=== PATIENT | male | born 1955 | race Caucasian/White ===

== ENCOUNTER 2016-04-20 13:25 | Inpatient (IN) | payer BC ==
[2016-04-20] MEDS ORDERED: SODIUM CHLORIDE 1,000 ML IV STA (14:40)
--- NOTE | 2016-04-20 14:45 | PDOC ---
History of Present Illness - General Chief Complaint: Weakness Stated Complaint: WEAKNESS Time Seen by Provider: 04/20/16 14:30 History Source: Patient, Family Exam Limitations: No Limitations - History of Present Illness Initial Comments: 04/20/16 14:42 61 yr male with c/o generalised weakness for 2 weeks. Pt admits to drinking alcohol vodka 1-2 pints a day last drink 3am. Pt denies any drug use non smoker. Pt has arthritis, no other medical history no surgical history. Pt feels feverish at times. Pt arrives in ED with and daughter pt states "I need help". Denies seizure history or history of blackouts. Pt denies abd pain or back pain no urinary or bowel dysfunction. Denies any blood in stool or vomiting . 04/20/16 14:44 04/20/16 15:00 04/20/16 15:38 Past History - Past Medical History Allergies/Adverse Reactions: Allergies Allergy/AdvReac Type Severity Reaction Status Date / Time No Known Allergies Allergy Verified 04/20/16 13:32 Home Medications: Ambulatory Orders Acetaminophen [Tylenol Arthritis] 650 mg PO PRN 04/20/16 Gabapentin [Neurontin -] 300 mg PO DAILY 04/20/16 Amlodipine Besylate [Norvasc -] 5 mg PO DAILY #90 tablet 04/22/16 Hydralazine HCl [Apresoline -] 10 mg PO DAILY #90 tablet 04/22/16 Other medical history: ARTHRITIS - Surgical History Appendectomy: Yes - Psycho/Social/Smoking Cessation Hx Anxiety: No Suicidal Ideation: No Smoking History: Never smoked Hx Alcohol Use: Yes (DAILY VODKA) Drug/Substance Use Hx: No Substance Use Type: None *Physical Exam - Vital Signs Last Vital Signs Temp Pulse Resp BP Pulse Ox 98.0 F 114 H 20 145/91 97 04/20/16 13:28 04/20/16 13:28 04/20/16 13:28 04/20/16 13:28 04/20/16 13:28 - Physical Exam General Appearance: Yes: Nourished, Appropriately Dressed HEENT: positive: EOMI, SAKINA, Normal ENT Inspection, TMs Normal, Pharynx Normal Neck: positive: Supple. negative: Tender Respiratory/Chest: positive: Lungs Clear, Normal Breath Sounds. negative: Chest Tender Cardiovascular: positive: Regular Rhythm, Regular Rate Gastrointestinal/Abdominal: positive: Soft, Distended. negative: Tender Musculoskeletal: positive: Normal Inspection Extremity: positive: Normal Capillary Refill, Normal Inspection, Normal Range of Motion Integumentary: positive: Normal Color, Dry, Warm Neurologic: positive: Fully Oriented, Alert, Normal Mood/Affect, Normal Response , Motor Strength 08/12 ED Treatment Course - LABORATORY CBC & Chemistry Diagram: 04/21/16 06:30 04/21/16 06:30 - RADIOLOGY Radiology Studies Ordered: Category Date Time Status CHEST PA & LAT [RAD] Stat Radiology 04/20/16 14:40 Ordered Medical Decision Making - Medical Decision Making 04/20/16 16:07 cc: weakness, etoh abuse denies chest pain denies SOB will check labs, CXR, flu swab, IVF admit for observation spoke to PMD states no history of CAD, has history or ETOH abuse will obs to hospitalist 04/20/16 16:20 *DC/Admit/Observation/Transfer Diagnosis at time of Disposition: Dehydration, ETOH abuse - Discharge Dispostion Condition at time of disposition: Stable Admit: Yes - Prescriptions
[2016-04-20 15:18] LABS: EOSINOPHIL 0.4 % (0-4.5); MCH 33.9 pg (25.7-33.7); MCHC 32.9 g/dl (32.0-35.9); MEAN CELL VOLUME 102.9 fl (80-96); MEAN PLT VOLUME 9.7 fl (7.5-11.1); NEUTROPHILS 53.1 % (42.8-82.8); PLATELET COUNT 139 K/MM3 (134-434); RDW 13.6 % (11.9-15.9); WHITE BLOOD COUNT 3.8 K/mm3 (4.0-10.0)
[2016-04-20 15:24] LABS: URINE MARIJUANA THC NEGATIVE ng/ml (CUTOFF=50)
[2016-04-20 15:34] LABS: ALBUMIN 3.6 g/dl (3.4-5.0); ANION GAP 14 (8-16); BILIRUBIN,TOTAL 1.1 mg/dL (0.2-1.0); CO2 26 mmol/L (21-32); GLUCOSE,RANDOM 160 mg/dL (74-106); SGOT/AST 153 U/L (15-37); SGPT/ALT 68 U/L (12-78); TOT PROT 6.6 g/dl (6.4-8.2)
[2016-04-20 15:36] LABS: ALK PHOS 77 U/L (45-117); TROPONIN I < 0.02 ng/ml (0.00-0.05)
[2016-04-20] MEDS ORDERED: FOLIC ACID INJECTION - 1 MG, THIAMINE HCL 100 MG, MULTIVIT INJECTION ADULT 10 ML in SOD... IVPB ONE (15:39)
[2016-04-20 15:54] LABS: INR 1.13 (0.82-1.09); PROTHROMBIN TIME (PATIENT) 12.5 SEC (9.98-11.88)
[2016-04-20 15:56] LABS: ACTIVATED PTT 32.6 SECONDS (26.9-34.4)
[2016-04-20] MEDS ORDERED: ACETAMINOPHEN 325 MG TABLET (FP) PO PRN (16:50)
--- NOTE | 2016-04-20 16:50 | HP ---
[id number] man who comes to the ER today complaining of generalized weakness. He states "I'm an alcoholic and I feel very weak." He has no specific complaints. He denies fever, chills, dizziness, chest pain, palpitations, shortness of breath, abdominal pain, nausea, vomiting, diarrhea, constipation, melena, rectal bleeding, weight loss, dysuria, hematuria, urinary frequency. He feels unsteady when walking. He is interested in detox to stop drinking. He admits to drinking 1 pint of vodka per day. His last drink was 3 am today. He denies history of withdrawal, seizures, blackouts. PAST MEDICAL HISTORY Osteoarthritis PAST SURGICAL HISTORY Appendectomy Allergies No Known Allergies Allergy (Verified 04/20/16 13:32) HOME MEDICATIONS 3 Medication Instructions Recorded Acetaminophen [Tylenol Arthritis] 650 mg PO PRN 04/20/16 Gabapentin [Neurontin -] 300 mg PO DAILY 04/20/16 Multivitamin [Poly-Vitamin] 1 each PO DAILY 04/20/16 Social History: Smoking: Quit 30 years ago Alcohol: Drinks 1 pint of vodka daily Drugs: None Recent Travel: No Family History: Non-contributory REVIEW OF SYSTEMS CONSTITUTIONAL: Present: generalized weakness, loss of appetite. Absent: fever , chills, diaphoresis, malaise, weight change HEENT: Absent: rhinorrhea, nasal congestion, throat pain, throat swelling, difficulty swallowing, mouth swelling, ear pain, eye pain, visual changes CARDIOVASCULAR: Absent: chest pain, syncope, palpitations, lightheadedness, peripheral edema RESPIRATORY: Absent: cough, shortness of breath, dyspnea with exertion, orthopnea, wheezing, stridor, hemoptysis GASTROINTESTINAL: Absent: abdominal pain, abdominal distension, nausea, vomiting , diarrhea, constipation, melena, hematochezia GENITOURINARY: Absent: dysuria, frequency, urgency, hesitancy, hematuria, flank pain MUSCULOSKELETAL: Present: arthralgias. Absent: myalgia, joint swelling, back pain, neck pain SKIN: Absent: rash, itching, pallor HEMATOLOGIC/IMMUNOLOGIC: Absent: easy bleeding, easy bruising, lymphadenopathy, frequent infections ENDOCRINE: Absent: unexplained weight gain, unexplained weight loss, heat intolerance, cold intolerance NEUROLOGIC: Present: unsteady gait. Absent: headache, focal weakness, paresthesias, dizziness, seizure, mental status changes, bladder or bowel incontinence PSYCHIATRIC: Absent: anxiety, depression, suicidal or homicidal ideation, hallucinations. PHYSICAL EXAMINATION Vital Signs Period Temp Pulse Resp BP Sys/Boothe Pulse Ox Last 24 Hr 98.0 F 114 20 145/91 97 GENERAL: Awake, alert, and fully oriented, in no acute distress. HEAD: Normal with no signs of trauma. EYES: Pupils equal, round and reactive to light, extraocular movements intact, sclerae anicteric, conjunctivae clear. EARS, NOSE, THROAT: Ears normal, nares patent, oropharynx clear without exudates. Moist mucous membranes. NECK: Normal range of motion, supple without lymphadenopathy, JVD, or masses. LUNGS: Breath sounds equal, clear to auscultation bilaterally. No wheezes, and no crackles. No accessory muscle use. HEART: Tachycardic, normal S1 and S2 without murmur, rub or gallop. ABDOMEN: Soft, nontender, not distended, normoactive bowel sounds, no guarding, no rebound, no masses. No hepatomegaly or splenomegaly. MUSCULOSKELETAL: Normal range of motion at all joints. No bony deformities or tenderness. No CVA tenderness. UPPER EXTREMITIES: 2+ pulses, warm, well-perfused. No cyanosis. No clubbing. Cap refill <2 seconds. No peripheral edema. LOWER EXTREMITIES: 2+ pulses, warm, well-perfused. No calf tenderness. No peripheral edema. NEUROLOGICAL: Cranial nerves II-XII intact. Normal speech. Mildly tremulous. Gait not observed. PSYCHIATRIC: Cooperative. Good eye contact. Appropriate mood and affect. SKIN: Warm, dry, normal turgor, no rashes or lesions noted. Laboratory Results - last 24 hr 04/20/16 04/20/16 04/20/16 15:07 15:07 15:07 WBC 3.8 L RBC 4.80 Hgb 16.3 Hct 49.4 H MCV 102.9 H MCHC 32.9 RDW 13.6 Plt Count 139 MPV 9.7 Neutrophils % 53.1 Lymphocytes % 29.0 Monocytes % 16.5 H Eosinophils % 0.4 Basophils % 1.0 INR 1.13 PTT (Actin FS) 32.6 Sodium 142 Potassium 3.5 Chloride 102 Carbon Dioxide 26 Anion Gap 14 BUN 15 Creatinine 1.0 Creat Clearance w eGFR > 60 Random Glucose 160 H Calcium 8.0 L Total Bilirubin 1.1 H AST 153 H ALT 68 Alkaline Phosphatase 77 Creatine Kinase 604 H Creatine Kinase Index 0.7 CK-MB (CK-2) 4.335 H CK-MB (CK-2) Rel Index Troponin I < 0.02 Total Protein 6.6 Albumin 3.6 Opiates Screen Methadone Screen Barbiturate Screen Phencyclidine Screen Ur Amphetamines Screen MDMA (Ecstasy) Screen Benzodiazepines Screen Cocaine Screen U Marijuana (THC) Screen Alcohol, Quantitative 04/20/16 04/20/16 15:07 15:07 WBC RBC Hgb Hct MCV MCHC RDW Plt Count MPV Neutrophils % Lymphocytes % Monocytes % Eosinophils % Basophils % INR PTT (Actin FS) Sodium Potassium Chloride Carbon Dioxide Anion Gap BUN Creatinine Creat Clearance w eGFR Random Glucose Calcium Total Bilirubin AST ALT Alkaline Phosphatase Creatine Kinase Creatine Kinase Index CK-MB (CK-2) CK-MB (CK-2) Rel Index Cancelled Troponin I Total Protein Albumin Opiates Screen Negative Methadone Screen Negative Barbiturate Screen Negative Phencyclidine Screen Negative Ur Amphetamines Screen Negative MDMA (Ecstasy) Screen Negative Benzodiazepines Screen Negative Cocaine Screen Negative U Marijuana (THC) Screen Negative Alcohol, Quantitative 233.4 H* Chest x-ray: No acute process. EKG: Sinus rhythm, rate 94, QTc 500 ms ASSESSMENT/PLAN: This is a 61-year-old man with no significant past medical history who presented to the ER today complaining of generalized weakness. He admitted to drinking 1 pint of vodka daily and would like to quit. He was found to be tachycardic and have MCV 102.9, AST 153, CK 604, alcohol level 233. He is being admitted now for treatment of an emergent condition. 1. Elevated CK - Likely secondary to alcohol use - Doubt cardiac - IV fluid - Monitor on telemetry - Monitor CK, troponin 2. Generalized weakness - Physical therapy evaluation 3. Alcohol intoxication, continuous alcohol abuse - IV fluid - Multivitamin, thiamine, folic acid - Start Librium detox - Detox consult Problem List - Problem (1) Alcohol intoxication Code(s): F10.129 - ALCOHOL ABUSE WITH INTOXICATION, UNSPECIFIED (2) Elevated creatine kinase Code(s): R74.8 - ABNORMAL LEVELS OF OTHER SERUM ENZYMES (3) Generalized weakness Code(s): R53.1 - WEAKNESS (4) Osteoarthritis Code(s): M19.90 - UNSPECIFIED OSTEOARTHRITIS, UNSPECIFIED SITE Visit type - Emergency Visit Emergency Visit: Yes ED Registration Date: 04/20/16 Care time: The patient presented to the Emergency Department on the above date and was hospitalized for further evaluation of their emergent condition. - New Patient This patient is new to me today: Yes Date on this admission: 04/20/16 - Critical Care Critical Care patient: No
[2016-04-20] MEDS ORDERED: ONDANSETRON 4 MG/2 ML VIAL IVPB PRN (16:52)
[2016-04-20] MEDS ORDERED: chlordiazePOXIDE HCL 25 MG CAPSULE PO PRN (16:54)
[2016-04-20] MEDS ORDERED: chlordiazePOXIDE HCL 25 MG CAPSULE ONE (17:01)
[2016-04-20] MEDS: chlordiazePOXIDE HCL 25 MG CAPSULE PO SCH ×2 (17:07→22:20)
[2016-04-20 17:53] LABS: URINE APPEARANCE CLEAR; URINE BILIRUBIN 1+ (NEGATIVE); URINE COLOR ORANGE; URINE GLUCOSE (UA) NEGATIVE (NEGATIVE); URINE KETONE 1+ (NEGATIVE); URINE LEUK ESTERASE NEGATIVE (NEGATIVE); URINE NITRITE NEGATIVE (NEGATIVE); URINE PROTEIN TRACE (NEGATIVE); URINE UROBILINOGEN 1.0 E.U/dl E.U./dl (0.2-1.0)
[2016-04-20 17:57] LABS: URINE BLOOD 1+ (NEGATIVE)
[2016-04-20 18:13] LABS: URINE MUCUS MODERATE; URINE RBC 3 /hpf (0-3); URINE WBC <1 /hpf (3-5)
[2016-04-20] MEDS: SODIUM CHLORIDE 1,000 ML IV SCH (19:00)
[2016-04-20 22:43] LABS: TROPONIN I < 0.02 ng/ml (0.00-0.05)
[2016-04-20 22:55] VITALS: BMI 30.7
[2016-04-20] MEDS ORDERED: RAMIPRIL 1.25 MG CAPSULE PO ONE (23:06)
--- NOTE | 2016-04-20 23:54 | EKG ---
Test Reason : Blood Pressure : / mmHG Vent. Rate : 094 BPM Atrial Rate : 094 BPM P-R Int : 182 ms QRS Dur : 094 ms QT Int : 400 ms P-R-T Axes : 027 -15 006 degrees QTc Int : 500 ms NORMAL SINUS RHYTHM CANNOT RULE OUT ANTERIOR INFARCT , AGE UNDETERMINED PROLONGED QT ABNORMAL ECG NO PREVIOUS ECGS AVAILABLE Confirmed by RANDAL LYNNE MD ([id number]) on 04/20/2016 11:54:18 PM Referred By: Confirmed By:RANDAL LYNNE MD
[2016-04-21] MEDS ORDERED: cloNIDine HCL 0.1 MG TABLET PO ONE (03:07)
[2016-04-21] MEDS: SODIUM CHLORIDE 1,000 ML IV SCH ×2 (04:00→16:14)
[2016-04-21] MEDS: chlordiazePOXIDE HCL 25 MG CAPSULE PO SCH ×4 (05:25→23:00)
--- NOTE | 2016-04-21 07:41 | PN ---
Physical Exam: SUBJECTIVE: Patient seen and examined at bed side. Currently has decreased appetite, in a depressed mood, he recognizes he is alcoholic and wants help for the first time. patient would like the [address] Cabello seen patient and is accepting [facility], pending a bed. OBJECTIVE: Vital Signs Period Temp Pulse Resp BP Sys/Boothe Pulse Ox Last 24 Hr 98.4 F-99.0 F 76-110 16-22 134-156/78-110 98-99 GENERAL: The patient is awake, alert, and fully oriented, in no acute distress. depressed braxton. HEAD: Normal with no signs of trauma. EYES: PERRL, extraocular movements intact, injected scelra, tears in eyes, No ptosis. ENT: Ears normal, nares patent, oropharynx clear without exudates, dry mucous membranes. NECK: Trachea midline, full range of motion, supple. LUNGS: Breath sounds equal, clear to auscultation bilaterally, no wheezes, no crackles, no accessory muscle use. HEART: Regular rate and rhythm, S1, S2 without murmur, rub or gallop. ABDOMEN: Soft, nontender, nondistended, normoactive bowel sounds, no guarding, no rebound, no hepatosplenomegaly, no masses. EXTREMITIES: 2+ pulses, warm, well-perfused, no edema. NEUROLOGICAL: Cranial nerves II through XII grossly intact. Normal speech, gait not observed. intentional tremors. no focal neurological deficit, strength 5/5 in upper and lower ext. PSYCH: Normal mood, normal affect, no anxiety, depressed mood. mood congruent with affect. SKIN: Warm, dry, normal turgor, erythema on face, chronic hyper pigmented lower ext. Laboratory Results - last 24 hr 04/20/16 04/20/16 04/20/16 17:40 21:15 21:15 Creatine Kinase 619 H CK-MB (CK-2) Rel Index Cancelled Troponin I < 0.02 Urine Color [place] Urine Appearance Clear Urine pH 6.0 Ur Specific [place] 1.025 Urine Protein Trace H Urine Glucose (UA) Negative Urine Ketones 1+ H Urine Blood 1+ H Urine Nitrite Negative Urine Bilirubin 1+ H Urine Urobilinogen 1.0 e.u/dl Ur Leukocyte Esterase Negative Urine RBC 3 Urine WBC <1 Urine Mucus Moderate Active Medications Generic Name Dose Route Start Last Admin Trade Name Chucky PRN Reason Stop Dose Admin Acetaminophen 650 mg 04/20/16 16:50 Tylenol - PO Q4H PRN FEVER OR PAIN Chlordiazepoxide HCl 25 mg 04/20/16 16:54 Librium - PO 04/23/16 16:53 Q4H PRN WITHDRAWAL(CONT SUBST) Chlordiazepoxide HCl 50 mg 04/20/16 17:00 04/21/16 05:25 Librium - PO 04/21/16 11:01 50 mg [id number] ANTONIO Administration Chlordiazepoxide HCl 25 mg 04/21/16 17:00 Librium - PO 04/22/16 11:01 [id number] ANTONIO Chlordiazepoxide HCl 15 mg 04/22/16 17:00 Librium - PO 04/23/16 11:01 [id number] ANTONIO Folic Acid 1 mg 04/21/16 10:00 Folic Acid - PO DAILY [facility] Gabapentin 300 mg 04/21/16 10:00 Neurontin - PO DAILY [facility] Sodium Chloride 1,000 mls @ 100 mls/hr 04/20/16 17:00 04/21/16 04:00 Normal Saline - IV 100 mls/hr ASDIR ANTONIO Administration Influenza Virus Vaccine 45 mcg 04/21/16 08:00 Fluvirin IM 04/21/16 08:01 .ONCE ONE Multivitamins/Minerals/Vitamin C 1 tab 04/21/16 10:00 Tab-A-Vit - PO DAILY [facility] Ondansetron HCl 4 mg 04/20/16 16:52 Zofran Injection IVPB Q4H PRN NAUSEA Pneumococcal 13-Valent Conj Vacc 0.5 ml 04/21/16 08:00 Prevnar 13 Syringe - IM 04/21/16 08:01 .ONCE ONE Thiamine HCl 100 mg 04/21/16 10:00 Vitamin B1 - PO DAILY [facility] ASSESSMENT/PLAN: This is a 61-year-old man with no significant past medical history who presented to the ER today complaining of generalized weakness. He admitted to drinking 1 pint of vodka daily and would like to quit. He was found to be tachycardic and have MCV 102.9, AST 153, CK 604, alcohol level 233. 1. Elevated CK: Likely secondary to alcohol use trending down with IV fluids. troponin neg x2, less likely cardiac - IV fluid - Monitor CK 2. Generalized weakness - Physical therapy evaluation 3. 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 dispo: pending bed, librium detox and transfer to detox unit at [facility]. Visit type - Emergency Visit Emergency Visit: Yes ED Registration Date: 04/20/16 Care time: The patient presented to the Emergency Department on the above date and was hospitalized for further evaluation of their emergent condition. - New Patient This patient is new to me today: No - Critical Care Critical Care patient: No
[2016-04-21] MEDS ORDERED: PNEUMOC 13-VAL CONJ-DIP CRM/PF 0.5 ML DISP.SYRIN IM ONE (08:00)
[2016-04-21 08:13] LABS: BASOPHIL 0.6 % (0-2.0); EOSINOPHIL 0.6 % (0-4.5); MCH 35.3 pg (25.7-33.7); MCHC 34.3 g/dl (32.0-35.9); MEAN CELL VOLUME 102.8 fl (80-96); MEAN PLT VOLUME 9.1 fl (7.5-11.1); NEUTROPHILS 64.3 % (42.8-82.8); PLATELET COUNT 84 K/MM3 (134-434); RDW 13.5 % (11.9-15.9); WHITE BLOOD COUNT 5.1 K/mm3 (4.0-10.0)
[2016-04-21 09:16] LABS: ALBUMIN 3.3 g/dl (3.4-5.0); ALK PHOS 68 U/L (45-117); ANION GAP 11 (8-16); BILIRUBIN,TOTAL 2.1 mg/dL (0.2-1.0); CO2 26 mmol/L (21-32); CREATININE 0.8 mg/dL (0.7-1.3); GLUCOSE,RANDOM 98 mg/dL (74-106); MAGNESIUM 1.8 mg/dL (1.8-2.4); PHOSPHOROUS 1.7 mg/dL (2.5-4.9); SGOT/AST 141 U/L (15-37); SGPT/ALT 66 U/L (12-78); TOT PROT 6.1 g/dl (6.4-8.2)
[2016-04-21] MEDS: MULTIVITAMINS (DAILY MVI) TABLET (FP) PO SCH (09:59)
[2016-04-21] MEDS: FOLIC ACID 1 MG TABLET (FP) PO SCH (10:00)
[2016-04-21] MEDS ORDERED: INFLUENZA VACCINE 45 MCG/0.5 ML (MDV 16-17) IM ONE (10:00)
[2016-04-21] MEDS: GABAPENTIN 300 MG CAPSULE (FP) PO SCH (10:00)
[2016-04-21] MEDS: THIAMINE HCL 100 MG TABLET (FP) PO SCH (10:00)
[2016-04-21] MEDS ORDERED: PNEUMOCOCCAL 23 VACCINE 0.5 ML VIAL IM ONE (10:00)
[2016-04-21 10:35] LABS: TROPONIN I < 0.02 ng/ml (0.00-0.05)
--- NOTE | 2016-04-21 12:52 | CONSULT ---
Consult Detox [facility] Reason for Current Admission/Consult: alcohol withdrawal sx. Referred by:: Warner Cooper MD - History History of Present Illness: 61 y/o man with a long hx. of alcoholism is seen by nc for librium detox and transfer to detox unit.Pt was admitted with Dx. of rhabdomyolisis. CPK is trending down & renal function is normal. - History Source History Provided By: Patient Limitations to Obtaining History: No Limitations - Alcohol/Substance Use Hx Alcohol Use: Yes (DAILY VODKA) - Current Drug/Alcohol Use Alcohol Route: Oral Frequency: Daily Amount used: Vodka 1-2 pints Age of first use: 17 Date of Last Use: 04/20/16 - Significant Medical Findings: Laboratory Tests 04/20/16 04/20/16 04/20/16 15:07 15:07 15:07 WBC 3.8 L RBC 4.80 Hgb 16.3 Hct 49.4 H MCV 102.9 H MCHC 32.9 RDW 13.6 Plt Count 139 MPV 9.7 Neutrophils % 53.1 Lymphocytes % 29.0 Monocytes % 16.5 H Eosinophils % 0.4 Basophils % 1.0 INR 1.13 PTT (Actin FS) 32.6 Sodium 142 Potassium 3.5 Chloride 102 Carbon Dioxide 26 Anion Gap 14 BUN 15 Creatinine 1.0 Creat Clearance w eGFR > 60 Random Glucose 160 H Calcium 8.0 L Phosphorus Magnesium Total Bilirubin 1.1 H AST 153 H ALT 68 Alkaline Phosphatase 77 Creatine Kinase 604 H Creatine Kinase Index 0.7 CK-MB (CK-2) 4.335 H CK-MB (CK-2) Rel Index Troponin I < 0.02 Total Protein 6.6 Albumin 3.6 Urine Color Urine Appearance Urine pH Ur Specific [place] Urine Protein Urine Glucose (UA) Urine Ketones Urine Blood Urine Nitrite Urine Bilirubin Urine Urobilinogen Ur Leukocyte Esterase Urine RBC Urine WBC Urine Mucus Opiates Screen Methadone Screen Barbiturate Screen Phencyclidine Screen Ur Amphetamines Screen MDMA (Ecstasy) Screen Benzodiazepines Screen Cocaine Screen U Marijuana (THC) Screen Alcohol, Quantitative 04/20/16 04/20/16 04/20/16 15:07 15:07 17:40 WBC RBC Hgb Hct MCV MCHC RDW Plt Count MPV Neutrophils % Lymphocytes % Monocytes % Eosinophils % Basophils % INR PTT (Actin FS) Sodium Potassium Chloride Carbon Dioxide Anion Gap BUN Creatinine Creat Clearance w eGFR Random Glucose Calcium Phosphorus Magnesium Total Bilirubin AST ALT Alkaline Phosphatase Creatine Kinase Creatine Kinase Index CK-MB (CK-2) CK-MB (CK-2) Rel Index Cancelled Troponin I Total Protein Albumin Urine Color [place] Urine Appearance Clear Urine pH 6.0 Ur Specific [place] 1.025 Urine Protein Trace H Urine Glucose (UA) Negative Urine Ketones 1+ H Urine Blood 1+ H Urine Nitrite Negative Urine Bilirubin 1+ H Urine Urobilinogen 1.0 e.u/dl Ur Leukocyte Esterase Negative Urine RBC 3 Urine WBC <1 Urine Mucus Moderate Opiates Screen Negative Methadone Screen Negative Barbiturate Screen Negative Phencyclidine Screen Negative Ur Amphetamines Screen Negative MDMA (Ecstasy) Screen Negative Benzodiazepines Screen Negative Cocaine Screen Negative U Marijuana (THC) Screen Negative Alcohol, Quantitative 233.4 H* 04/20/16 04/20/16 04/21/16 21:15 21:15 06:30 WBC 5.1 D RBC 4.32 Hgb 15.2 Hct 44.4 MCV 102.8 H MCHC 34.3 RDW 13.5 Plt Count 84 L D MPV 9.1 Neutrophils % 64.3 D Lymphocytes % 20.4 D Monocytes % 14.1 H Eosinophils % 0.6 Basophils % 0.6 INR PTT (Actin FS) Sodium Potassium Chloride Carbon Dioxide Anion Gap BUN Creatinine Creat Clearance w eGFR Random Glucose Calcium Phosphorus Magnesium Total Bilirubin AST ALT Alkaline Phosphatase Creatine Kinase 619 H Creatine Kinase Index CK-MB (CK-2) CK-MB (CK-2) Rel Index Cancelled Troponin I < 0.02 Total Protein Albumin Urine Color Urine Appearance Urine pH Ur Specific [place] Urine Protein Urine Glucose (UA) Urine Ketones Urine Blood Urine Nitrite Urine Bilirubin Urine Urobilinogen Ur Leukocyte Esterase Urine RBC Urine WBC Urine Mucus Opiates Screen Methadone Screen Barbiturate Screen Phencyclidine Screen Ur Amphetamines Screen MDMA (Ecstasy) Screen Benzodiazepines Screen Cocaine Screen U Marijuana (THC) Screen Alcohol, Quantitative 04/21/16 04/21/16 06:30 06:30 WBC RBC Hgb Hct MCV MCHC RDW Plt Count MPV Neutrophils % Lymphocytes % Monocytes % Eosinophils % Basophils % INR PTT (Actin FS) Sodium 141 Potassium 3.5 Chloride 104 Carbon Dioxide 26 Anion Gap 11 BUN 12 Creatinine 0.8 Creat Clearance w eGFR > 60 Random Glucose 98 D Calcium 8.0 L Phosphorus 1.7 L Magnesium 1.8 Total Bilirubin 2.1 H D AST 141 H ALT 66 Alkaline Phosphatase 68 Creatine Kinase 561 H Cancelled Creatine Kinase Index CK-MB (CK-2) CK-MB (CK-2) Rel Index Troponin I < 0.02 Cancelled Total Protein 6.1 L Albumin 3.3 L Urine Color Urine Appearance Urine pH Ur Specific [place] Urine Protein Urine Glucose (UA) Urine Ketones Urine Blood Urine Nitrite Urine Bilirubin Urine Urobilinogen Ur Leukocyte Esterase Urine RBC Urine WBC Urine Mucus Opiates Screen Methadone Screen Barbiturate Screen Phencyclidine Screen Ur Amphetamines Screen MDMA (Ecstasy) Screen Benzodiazepines Screen Cocaine Screen U Marijuana (THC) Screen Alcohol, Quantitative labs noted CIWA Score - CIWA Score Nausea/Vomitin-Mild Nausea/No Vomiting Muscle Tremors: 4-Moderate,w/Arms Extend Anxiety: 4-Mod. Anxious/Guarded Agitation: 4-Moderately Restless Paroxysmal Sweats: 3 Orientation: 0-Oriented Tacttile Disturbances: 0-None Auditory Disturbances: 0-None Visual Disturbances: 0-None Headache: 0-None Present CIWA-Ar Total Score: 16 Assessment Plan - Diagnosis (1) Alcohol dependence with uncomplicated withdrawal Status: Acute - Plan Plan: Detox with librium and refer to rehab. - Medication Detox Regimen/Protocol: Librium
--- NOTE | 2016-04-21 13:36 | PN ---
Teaching Attending Note Name of Resident: Giacomo Monet ATTENDING PHYSICIAN STATEMENT I saw and evaluated the patient. I reviewed the resident's note and discussed the case with the resident. I agree with the resident's findings and plan as documented. SUBJECTIVE:mildly anxious and tearful during encounter. states that he was clean in the past and was able to detox himself off alcohol and has been clean for many years but started drinking again recently, more than in the past but has desires to stay clean and get his life on track. no hx of DT, hallucinations or withdrawal seizures. currently he has mild anxiety and nauseated. denies CP, SOB,fever, chills, visual/auditory/tactile hallucinations OBJECTIVE: Last Vital Signs Temp Pulse Resp BP Pulse Ox 98.0 F 114 H 22 138/96 96 04/21/16 13:27 04/21/16 13:27 04/21/16 13:27 04/21/16 08:00 04/21/16 08:00 General anxious, diaphoretic CV S1 S2 tachycardic no murmur/rub/gallop Extremities mild tremor on extended hand ASSESSMENT AND PLAN: 61yo M with PMH continous ETOH abuse presented to the ER and was admitted for further evaluation of their emergent condition' 1. Acute ETOH withdrawals- CIWA 8. on librium taper. desires detox and possibly inpatient rehab, would like to discuss more with detox specialist. cont thiamine /folate/MVI, IVF and nausea control 2. Elevated CK- trending down 3. dvt ppx- EAM 4. transfer to [facility] for detox completion and possible inpatient rehab
[2016-04-22] MEDS: chlordiazePOXIDE HCL 25 MG CAPSULE PO SCH ×2 (05:35→10:08)
--- NOTE | 2016-04-22 08:58 | PN ---
Physical Exam: SUBJECTIVE: Patient seen and examined Patient resting in bed comfortably, NAD, No acute events overnight, OBJECTIVE: Vital Signs Period Temp Pulse Resp BP Sys/Boothe Pulse Ox Last 24 Hr 98.0 F-98.7 F 76-114 20-22 132-142/88-92 GENERAL: The patient is awake, alert, and fully oriented, in no acute distress. HEAD: Normal with no signs of trauma. EYES: PERRL, extraocular movements intact, sclera anicteric, conjunctiva clear. No ptosis. ENT: Ears normal, nares patent, oropharynx clear without exudates, moist mucous membranes. NECK: Trachea midline, full range of motion, supple. LUNGS: Breath sounds equal, clear to auscultation bilaterally, no wheezes, no crackles, no accessory muscle use. HEART: Regular rate and rhythm, S1, S2 without murmur, rub or gallop. ABDOMEN: Soft, nontender, nondistended, normoactive bowel sounds, no guarding, no rebound, no hepatosplenomegaly, no masses. EXTREMITIES: 2+ pulses, warm, well-perfused, no edema. NEUROLOGICAL: Cranial nerves II through XII grossly intact. Normal speech, gait not observed. PSYCH: Normal mood, normal affect. SKIN: Warm, dry, normal turgor, no rashes or lesions noted Laboratory Results - last 24 hr 04/21/16 04/21/16 04/21/16 06:30 06:30 06:30 Sodium 141 Potassium 3.5 Chloride 104 Carbon Dioxide 26 Anion Gap 11 BUN 12 Creatinine 0.8 Creat Clearance w eGFR > 60 Random Glucose 98 D Calcium 8.0 L Phosphorus 1.7 L Magnesium 1.8 Total Bilirubin 2.1 H D AST 141 H ALT 66 Alkaline Phosphatase 68 Creatine Kinase 561 H Cancelled Creatine Kinase Index 0.4 CK-MB (CK-2) 2.639 CK-MB (CK-2) Rel Index Cancelled Troponin I < 0.02 Cancelled Total Protein 6.1 L Albumin 3.3 L Active Medications Generic Name Dose Route Start Last Admin Trade Name Freq PRN Reason Stop Dose Admin Acetaminophen 650 mg 04/20/16 16:50 Tylenol - PO Q4H PRN FEVER OR PAIN Chlordiazepoxide HCl 25 mg 04/20/16 16:54 Librium - PO 04/23/16 16:53 Q4H PRN WITHDRAWAL(CONT SUBST) Chlordiazepoxide HCl 25 mg 04/21/16 17:00 04/22/16 05:35 Librium - PO 04/22/16 11:01 25 mg [id number] ANTONIO Administration Chlordiazepoxide HCl 15 mg 04/22/16 17:00 Librium - PO 04/23/16 11:01 [id number] ANTONIO Folic Acid 1 mg 04/21/16 10:00 04/21/16 10:00 Folic Acid - PO 1 mg DAILY ANTONIO Administration Gabapentin 300 mg 04/21/16 10:00 04/21/16 10:00 Neurontin - PO 300 mg DAILY ANTONIO Administration Sodium Chloride 1,000 mls @ 100 mls/hr 04/20/16 17:00 04/21/16 16:14 Normal Saline - IV Not Given ASDIR ANTONIO Multivitamins/Minerals/Vitamin C 1 tab 04/21/16 10:00 04/21/16 09:59 Tab-A-Vit - PO 1 tab DAILY ANTONIO Administration Ondansetron HCl 4 mg 04/20/16 16:52 Zofran Injection IVPB Q4H PRN NAUSEA Thiamine HCl 100 mg 04/21/16 10:00 04/21/16 10:00 Vitamin B1 - PO 100 mg DAILY ANTONIO Administration ASSESSMENT/PLAN:
[2016-04-22] MEDS: FOLIC ACID 1 MG TABLET (FP) PO SCH (09:27)
[2016-04-22] MEDS: THIAMINE HCL 100 MG TABLET (FP) PO SCH (09:27)
[2016-04-22] MEDS: MULTIVITAMINS (DAILY MVI) TABLET (FP) PO SCH (09:27)
[2016-04-22] MEDS: GABAPENTIN 300 MG CAPSULE (FP) PO SCH (09:27)
[2016-04-22] MEDS ORDERED: hydrALAZINE HCL 10 MG TABLET PO ONE (09:30)
[2016-04-22] MEDS ORDERED: amLODIPine BESYLATE 5 MG TABLET (FP) PO SCH (10:00)
--- NOTE | 2016-04-22 11:16 | PN ---
Teaching Attending Note Name of Resident: Lani Knight ATTENDING PHYSICIAN STATEMENT I saw and evaluated the patient. I reviewed the resident's note and discussed the case with the resident. I agree with the resident's findings and plan as documented. SUBJECTIVE:currently asymptomatic. denies CP, SOB,fever, chills, N/V/C/D, tactile/visual/auditory hallucinations OBJECTIVE: Last Vital Signs Temp Pulse Resp BP Pulse Ox 97.2 F L 92 H 20 152/103 96 04/22/16 08:59 04/22/16 10:58 04/22/16 10:58 04/22/16 10:58 04/21/16 08:00 General NAD CV S1 S2 RRR no murmur/rub/gallop Extremities mild tremor on extended hand ASSESSMENT AND PLAN: 61yo M with PMH continous ETOH abuse presented to the ER and was admitted for further evaluation of their emergent condition 1. Acute ETOH withdrawals- CIWA 3. on librium taper. desires detox and possibly inpatient rehab, awaiting insurance authorization. cont thiamine/folate/MVI, nausea control 2. HTN- uncontrolled BP here. will start norvasc 3. Elevated CK- trending down. d/c IVF 4. dvt ppx- EAM 5. d/c to [facility] for continued detox
--- NOTE | 2016-04-22 11:32 | DS ---
Physical Exam: SUBJECTIVE: Patient seen and examined Patient resting in bed comfortably, nad. No acute events overnight. Afebrile and hemodynamically stable. Has been persistently hypertensive, systolic 150's. Feels better. Has minimal tremors, minimal anxiety, no n/v, no diarrhea, no diaphoresis, improved sleep. Expresses wishers to pursue rehab. Denies h/a, chest pain, abd pain, dysuria. OBJECTIVE: Vital Signs Period Temp Pulse Resp BP Sys/Boothe Pulse Ox Last 24 Hr 97.2 F-98.7 F 76-114 20-22 132-152/88-108 PHYSICAL EXAM GENERAL: The patient is awake, alert, and fully oriented, in no acute distress. HEAD: Normal with no signs of trauma. EYES: PERRL, extraocular movements intact, sclera anicteric, conjunctiva mildly injected ENT: moist mucous membranes. NECK: supple. LUNGS: Breath sounds equal, clear to auscultation bilaterally HEART: Regular rate and rhythm, S1, S2 ABDOMEN: Soft, nontender, nondistended, normoactive bowel sounds EXTREMITIES: 2+ pulses, warm, well-perfused, no edema. NEUROLOGICAL: Cranial nerves II through XII grossly intact. Normal speech, gait not observed. PSYCH: Normal mood, normal affect. SKIN: Warm, dry LABS Laboratory Results - last 24 hr 04/21/16 04/21/16 06:30 06:30 Creatine Kinase Index 0.4 CK-MB (CK-2) 2.639 CK-MB (CK-2) Rel Index Cancelled HOSPITAL COURSE: Date of Admission:04/20/16 This is a 61 yo M with PMH of EtOH abuse who came to the ER due to generalized weakness. He had no specific complaints. He denied fever, chills, dizziness, chest pain, palpitations, shortness of breath, abdominal pain, nausea, vomiting , diarrhea, constipation, melena, rectal bleeding, weight loss, dysuria, hematuria, urinary frequency. He felt unsteady when walking. He expressed interested in detox to stop drinking. He admitted to drinking 1 pint of vodka per day. His last drink was 3 am day of admission. He denied history of withdrawal, seizures, blackouts. On admission he was found to be in rhabdomyolisis CPK 604. He was admitted to med surge unit for IV hydration, vitamins, and Librium detox. He was evaluated by detox/vocational rehabilitation specialist and accepted to [facility]. He was found ot be hypertensive throughout admission and was placed on norvasc and hydralazine. His CPK is trending down & renal function is normal. He left to [facility] for further management Date of Discharge: 04/22/16 Minutes to complete discharge: 30 (na) Discharge Summary Reason For Visit: DEHYDRATION; ETOH ABUSE Current Active Problems Alcohol dependence with uncomplicated withdrawal (Acute) Alcohol intoxication (Acute) Elevated creatine kinase (Acute) Generalized weakness (Acute) ETOH abuse (Chronic) Osteoarthritis (Chronic) Condition: Stable - Instructions Diet, Activity, Other Instructions: You were admitted due to alcohol withdrawal. This is a dangerous and potentially fatal condition. You a have been placed on Librium, which is a medication that protects you from the dangers of withdrawal and relieves withdrawal symptoms. You will be required to slowly come off the medication. You have been evaluated by a detox specialist and will continue your detox and rehab in [facility]. While in the hospital, your blood pressure has been elevated and you were starteed on Norvasc 5mg daily and Hydralazine 10 mg daily, which you will have to take from how on. Please follow up with your primary care physician when you are done with rehab and consider AA for EtOh abuse. Please return to the hospital if symptoms resume. Referrals: Maggie Aleman MD [Primary Care Provider] - 1 Week Disposition: HALF-WAY FACILITY - Home Medications Comprehensive Discharge Medication List: Ambulatory Orders Acetaminophen [Tylenol Arthritis] 650 mg PO PRN 04/20/16 Gabapentin [Neurontin -] 300 mg PO DAILY 04/20/16 Multivitamin [Poly-Vitamin] 1 each PO DAILY 04/20/16 Problem List - Problems (1) Alcohol dependence with uncomplicated withdrawal Code(s): F10.230 - ALCOHOL DEPENDENCE WITH WITHDRAWAL, UNCOMPLICATED (2) Alcohol intoxication Code(s): F10.129 - ALCOHOL ABUSE WITH INTOXICATION, UNSPECIFIED (3) Elevated creatine kinase Code(s): R74.8 - ABNORMAL LEVELS OF OTHER SERUM ENZYMES (4) Generalized weakness Code(s): R53.1 - WEAKNESS (5) ETOH abuse Code(s): F10.10 - ALCOHOL ABUSE, UNCOMPLICATED (6) Osteoarthritis Code(s): M19.90 - UNSPECIFIED OSTEOARTHRITIS, UNSPECIFIED SITE This patient is new to me today: Yes Date on this admission: 04/22/16 Emergency Visit: Yes ED Registration Date: 04/20/16 Care time: The patient presented to the Emergency Department on the above date and was hospitalized for further evaluation of their emergent condition. Critical Care patient: No - Discharge Referral Referred to [facility] Med P.C.: No
[2016-04-22] MEDS ORDERED: hydrALAZINE HCL 10 MG TABLET PO SCH (12:00)
[2016-04-22 14:26] VITALS: BP 120/85; PULSE 99; TEMP 98.2
[2016-04-22] MEDS ORDERED: chlordiazePOXIDE 5 MG CAPSULE PO SCH (17:00)
[2016-04-25 09:31] LABS: PCP BLOOD NEGATIVE
== END 2016-04-22 15:00 | disposition other institution (70) | DRG 999 ==
LOC: JER 13:25 → OBSVTOIN 16:52 → JERBED 16:52 → UNDOADMOB 18:02 → J6S 20:21
PROVIDERS: ADMIT Internal Medicine; ATTEND Internal Medicine
PROC: HZ2ZZZZ Detoxification Services for Substance Abuse Treatment (ICD-10-PCS; principal; 2016-04-20)
DX: F10.230 Alcohol dependence with withdrawal, uncomplicated (principal); E86.0 Dehydration; R53.1 Weakness; M19.90 Unspecified osteoarthritis, unspecified site; I10 Essential (primary) hypertension; F10.229 Alcohol dependence with intoxication, unspecified
CPT/HCPCS: 36415; 71020-TC; 80053; 80307; 81003; 81015; 82550; 82553; 83735; 84100; 84484; 85025; 85610; 85730; 87254; 87804; 90732; 93005; 93010; 97116-GP; 97161-GP; 99285-25; G0008; G0009; Q2037

== ENCOUNTER 2016-04-22 15:41 | Inpatient (IN) | payer BC ==
[2016-04-22 15:58] VITALS: BMI 29.9
--- NOTE | 2016-04-22 17:35 | HP ---
CIWA Score - CIWA Score Nausea/Vomitin-No Nausea/No Vomiting Muscle Tremors: 2 Anxiety: 2 Agitation: 1-Slight > Activity Paroxysmal Sweats: 1-Minimal Palms Moist Orientation: 0-Oriented Tacttile Disturbances: 0-None Auditory Disturbances: 0-None Visual Disturbances: 0-None Headache: 1-Very Mild (PATIENT WAS TREATED AT [facility] SINCE 04/20/16 FOR ALCOHOL INTOXCATION, DETOX WITH LIBRIUM REGIMEN TRANSFERRED TO [facility] CONTINUE DETOX) CIWA-Ar Total Score: 7 Admission [facility] - HPI Chief Complaint: WITHDRAWAL SX S/P DETOX SINCE 04/20/16 Allergies/Adverse Reactions: Allergies Allergy/AdvReac Type Severity Reaction Status Date / Time No Known Allergies Allergy Verified 04/20/16 13:32 History of Present Illness: 61 YEARS OLD MALE WITH LONG HISTORY OF ALCOHOL DEPENDENCE, HAS HYPERTENSION, DENIES MENTAL ILLNESS, LONGEST SOBRIETY 2 WEEKS IS ADMITTED TO DETOX Exam Limitations: No Limitations - Ebola screening Have you traveled outside of the country in the last 21 days: No Have you had contact with anyone from an Ebola affected area: No Have you been sick,other than usual withdrawal symptoms: No Do you have a fever: No - Review of Systems Constitutional: Chills, Changes in sleep, Weight Stable EENT: reports: Other (EYE GLASSES) Respiratory: reports: No Symptoms reported Cardiac: reports: Palpitations GI: reports: Poor Fluid Intake, Abdominal cramping : reports: No Symptoms Reported Musculoskeletal: reports: Joint Pain, Muscle Pain (HANDS AND TOES) Integumentary: reports: No Symptoms Reported Neuro: reports: Tremors Endocrine: reports: No Symptoms Reported Hematology: reports: No Symptoms Reported Psychiatric: reports: Judgement Intact, Mood/Affect Appropiate, Orientated x3 Other Systems: Reviewed and Negative Patient History - Patient Medical History Hx Anemia: No Hx Asthma: No Hx Chronic Obstructive Pulmonary Disease (COPD): No Hx Cancer: No Hx Cardiac Disorders: No Hx Congestive Heart Failure: No Hx Hypertension: Yes Hx Hypercholesterolemia: No Hx Pacemaker: No HX Cerebrovascular Accident: No Hx Seizures: No Hx Dementia: No Hx Diabetes: No Hx Gastrointestinal Disorders: No Hx Liver Disease: No Hx Genitourinary Disorders: No Hx Sexually Transmitted Disorders: No Hx Renal Disease (ESRD): No Hx Thyroid Disease: No Hx Human Immunodeficiency Virus (HIV): No Hx Hepatitis C: No Hx Depression: No Hx Suicide Attempt: No Hx Bipolar Disorder: No Hx Schizophrenia: No - Patient Surgical History Past Surgical History: Yes Hx Neurologic Surgery: No Hx Cataract Extraction: No Hx Cardiac Surgery: No Hx Lung Surgery: No Hx Breast Surgery: No Hx Breast Biopsy: No Hx Abdominal Surgery: No Hx Appendectomy: Yes (8 YEARS OLD) Hx Cholecystectomy: No Hx Genitourinary Surgery: No Hx Orthopedic Surgery: No Anesthesia Reaction: No - PPD History Previous Implant?: Yes Documented Results: Negative w/o proof Implanted On Prior [facility] Admission?: No PPD to be Administered?: Yes - Smoking Cessation Smoking history: Never smoked Hx Chewing Tobacco Use: No Initiated information on smoking cessation: No - Substance & Tx. History Hx Alcohol Use: Yes Hx Substance Use: No Substance Use Type: Alcohol Hx Substance Use Treatment: Yes - Substances Abused Alcohol Route: Oral Frequency: Daily Amount used: [place] Age of first use: 16 Date of Last Use: 04/20/16 Family Disease History - Family Disease History Family Disease History: Other: Father Admission Physical Exam [facility] - Vital Signs Vital Signs: Vital Signs - 24 hr 04/22/16 15:50 Temperature 96.4 F L Pulse Rate 128 H Respiratory 20 Rate Blood Pressure 135/90 - Physical General Appearance: Yes: Nourished, Appropriately Dressed, Mild Distress, Tremorous, Irritable, Sweating, Anxious HEENTM: Yes: Hearing grossly Normal, Normal ENT Inspection, Normocephalic, Normal Voice Respiratory: Yes: Chest Non-Tender, Lungs Clear, Normal Breath Sounds, No Respiratory Distress, No Accessory Muscle Use Neck: Yes: Supple, Trachea in good position Breast: Yes: Breasts Symetrical Cardiology: Yes: Regular Rhythm, S1, S2, Tachycardia Abdominal: Yes: Non Tender, Soft Genitourinary: Yes: Within Normal Limits Back: Yes: Normal Inspection Musculoskeletal: Yes: full range of Motion, Gait Steady, Muscle Pain Extremities: Yes: Normal Range of Motion, Non-Tender, Tremors Neurological: Yes: Fully Oriented, Alert, Motor Strength 5/5, Normal Mood/Affect , Normal Response Integumentary: Yes: Warm Lymphatic: Yes: Within Normal Limits - Diagnostic (1) Alcohol dependence with uncomplicated withdrawal Current Visit: Yes Status: Acute (2) Hypertension Current Visit: Yes Status: Acute Qualifiers: Hypertension type: essential hypertension Qualified Code(s): I10 - Essential (primary) hypertension (3) Arthritis, rheumatoid, with visceral/systematic involvment Current Visit: Yes Status: Acute Cleared for Admission [facility] - Detox or Rehab [facility] Level of Care: Medically Managed Detox Regimen/Protocol: Librium [facility] Breath Alcohol Content Breath Alcohol Content: 0 Urine Drug Screen - Results Drug Screen Negative: No Urine Drug Screen Results: BZO-Benzodiazepines
[2016-04-22] MEDS ORDERED: guaiFENesin/D-METHORPHAN HB 10 ML UNIT-DOSE CUPS PO PRN (17:51)
[2016-04-22] MEDS ORDERED: LOPERAMIDE HCL 2 MG CAPSULE PO PRN (17:51)
[2016-04-22] MEDS ORDERED: chlordiazePOXIDE HCL 25 MG CAPSULE PO PRN (17:51)
[2016-04-22] MEDS ORDERED: diphenhydrAMINE HCL 50 MG CAPSULE PO PRN (17:51)
[2016-04-22] MEDS ORDERED: ACETAMINOPHEN 325 MG TABLET (FP) PO PRN (17:51)
[2016-04-22] MEDS ORDERED: MAGNESIUM HYDROX 2400MG/30ML ORAL SUSPENSION 30 ML CUP PO PRN (17:51)
[2016-04-22] MEDS ORDERED: IBUPROFEN 400 MG TABLET (FP) PO PRN (17:51)
[2016-04-22] MEDS ORDERED: P-EPHED 60MG/TRIPROLIDI 2.5MG TABLET PO PRN (17:51)
[2016-04-22] MEDS ORDERED: MENTHOL/PHENOL 1 EACH UD MM PRN (17:51)
[2016-04-22] MEDS ORDERED: MAG HYDROX/AL HYDROX/SIMETH 30 ML UNIT-DOSE CUP PO PRN (17:51)
[2016-04-22] MEDS ORDERED: MAGNESIUM CITRATE 300 ML BOTTLE PO PRN (17:51)
[2016-04-22] MEDS ORDERED: hydrOXYzine PAMOATE 50 MG CAPSULE (FP) PO PRN (17:56)
[2016-04-22] MEDS: chlordiazePOXIDE 5 MG CAPSULE PO SCH (22:42)
[2016-04-22] MEDS: THIAMINE HCL 100 MG TABLET (FP) PO SCH (22:42)
[2016-04-23 05:28] LABS: URINE APPEARANCE CLEAR; URINE BILIRUBIN NEGATIVE (NEGATIVE); URINE BLOOD NEGATIVE (NEGATIVE); URINE COLOR AMBER; URINE GLUCOSE (UA) NEGATIVE (NEGATIVE); URINE KETONE NEGATIVE (NEGATIVE); URINE LEUK ESTERASE NEGATIVE (NEGATIVE); URINE NITRITE NEGATIVE (NEGATIVE); URINE PROTEIN NEGATIVE (NEGATIVE); URINE UROBILINOGEN 4.0 E.U/dl E.U./dl (0.2-1.0)
[2016-04-23] MEDS: chlordiazePOXIDE 5 MG CAPSULE PO SCH ×3 (06:03→18:36)
[2016-04-23] MEDS ORDERED: PRENATAL VITAMINS W/ FOLIC ACID TABLET (FP) PO SCH (10:00)
[2016-04-23] MEDS: hydrALAZINE HCL 10 MG TABLET PO SCH (11:15)
[2016-04-23] MEDS: GABAPENTIN 300 MG CAPSULE (FP) PO SCH (11:19)
[2016-04-23] MEDS: amLODIPine BESYLATE 5 MG TABLET (FP) PO SCH (11:19)
--- NOTE | 2016-04-23 12:13 | PN ---
S CIWA - CIWA Score Nausea/Vomitin Muscle Tremors: 3 Anxiety: 2 Agitation: 3 Paroxysmal Sweats: 1-Minimal Palms Moist Orientation: 0-Oriented Tacttile Disturbances: 1-Very Mild Itch/Numbness Auditory Disturbances: 1-Very Mild Visual Disturbances: 1-Very Mild Sensitivity Headache: 2-Mild CIWA-Ar Total Score: 17 BHS Progress Note (SOAP) Subjective: ALERT,IRRITABLE,ANXIOUS,INTERRUPTED SLEEP,TREMOR Objective: 04/23/16 12:11 Vital Signs Temperature 97.0 F L 04/23/16 10:00 Pulse Rate 120 H 04/23/16 10:00 Respiratory Rate 18 04/23/16 10:00 Blood Pressure 128/90 04/23/16 10:00 O2 Sat by Pulse Oximetry (%) EKG NSR,NORMAL ECG Laboratory Last Values Urine Color Alysa 04/22/16 22:13 Urine Appearance Clear 04/22/16 22:13 Urine pH 7.0 (5.0-8.0) 04/22/16 22:13 Ur Specific [place] 1.020 (1.001-1.035) 04/22/16 22:13 Urine Protein Negative (NEGATIVE) 04/22/16 22:13 Urine Glucose (UA) Negative (NEGATIVE) 04/22/16 22:13 Urine Ketones Negative (NEGATIVE) 04/22/16 22:13 Urine Blood Negative (NEGATIVE) 04/22/16 22:13 Urine Nitrite Negative (NEGATIVE) 04/22/16 22:13 Urine Bilirubin Negative (NEGATIVE) 04/22/16 22:13 Urine Urobilinogen 4.0 e.u/dl E.U./dl (0.2-1.0) 04/22/16 22:13 Ur Leukocyte Esterase Negative (NEGATIVE) 04/22/16 22:13 LABS PENDING Assessment: 04/23/16 12:12 WITHDRAWAL SYMPTOM Plan: CONTINUE DETOX
--- NOTE | 2016-04-23 16:19 | EKG ---
Test Reason : Blood Pressure : / mmHG Vent. Rate : 092 BPM Atrial Rate : 092 BPM P-R Int : 162 ms QRS Dur : 090 ms QT Int : 380 ms P-R-T Axes : 029 -13 014 degrees QTc Int : 469 ms NORMAL SINUS RHYTHM NORMAL ECG WHEN COMPARED WITH ECG OF 20-APR-2016 14:49, NO SIGNIFICANT CHANGE WAS FOUND Confirmed by GOOD DASILVA MD ([id number]) on 04/23/2016 4:19:35 PM Referred By: Confirmed By:GOOD DASILVA MD
[2016-04-23] MEDS: chlordiazePOXIDE HCL 10 MG CAPSULE PO SCH (22:22)
[2016-04-23] MEDS: THIAMINE HCL 100 MG TABLET (FP) PO SCH (22:22)
[2016-04-24] MEDS: chlordiazePOXIDE HCL 10 MG CAPSULE PO SCH (06:00)
--- NOTE | 2016-04-24 09:20 | PN ---
S CIWA - CIWA Score Nausea/Vomitin Muscle Tremors: 3 Anxiety: 2 Agitation: 2 Paroxysmal Sweats: 1-Minimal Palms Moist Orientation: 0-Oriented Tacttile Disturbances: 1-Very Mild Itch/Numbness Auditory Disturbances: 1-Very Mild Visual Disturbances: 1-Very Mild Sensitivity Headache: 2-Mild CIWA-Ar Total Score: 16 BHS Progress Note (SOAP) Subjective: ALERT,IRRITABLE,INTERRUPTED SLEEP Objective: 04/24/16 09:19 Vital Signs Temperature 97.9 F 04/24/16 06:00 Pulse Rate 81 04/24/16 06:00 Respiratory Rate 18 04/24/16 06:00 Blood Pressure 130/90 04/24/16 06:00 O2 Sat by Pulse Oximetry (%) Assessment: 04/24/16 09:19 Laboratory Last Values Urine Color Alysa 04/22/16 22:13 Urine Appearance Clear 04/22/16 22:13 Urine pH 7.0 (5.0-8.0) 04/22/16 22:13 Ur Specific [place] 1.020 (1.001-1.035) 04/22/16 22:13 Urine Protein Negative (NEGATIVE) 04/22/16 22:13 Urine Glucose (UA) Negative (NEGATIVE) 04/22/16 22:13 Urine Ketones Negative (NEGATIVE) 04/22/16 22:13 Urine Blood Negative (NEGATIVE) 04/22/16 22:13 Urine Nitrite Negative (NEGATIVE) 04/22/16 22:13 Urine Bilirubin Negative (NEGATIVE) 04/22/16 22:13 Urine Urobilinogen 4.0 e.u/dl E.U./dl (0.2-1.0) 04/22/16 22:13 Ur Leukocyte Esterase Negative (NEGATIVE) 04/22/16 22:13 Plan: CONTINUE DETOX
--- NOTE | 2016-04-24 09:21 | PN ---
[facility] Progress Note Note: PATIENT DID NOT WANT TO COMPLETE TREATMENT,SIGNED RELEASE AMA
--- NOTE | 2016-04-24 09:24 | DS ---
[facility] Detox Discharge Summary Admission Date: 04/22/16 Discharge Date: 04/24/16 - History Present History: Alcohol Dependence Additional Comments: PATIENT DID NOT WANT TO COMPLETE TREATMENT,SIGNED RELEASE AMA,FOLLOW UP WITH PMD FOR MEDICAL PROBLEM Pertinent Past History: HYPERTENSION RHEUMATOID ARTHRITIS - Physical Exam Results Vital Signs: Vital Signs Temperature 97.9 F 04/24/16 06:00 Pulse Rate 81 04/24/16 06:00 Respiratory Rate 18 04/24/16 06:00 Blood Pressure 130/90 04/24/16 06:00 O2 Sat by Pulse Oximetry (%) Pertinent Admission Physical Exam Findings: WITHDRAWAL SYMPTOM - Medication Discharge Medications: Ambulatory Orders Acetaminophen [Tylenol Arthritis] 650 mg PO PRN 04/20/16 Gabapentin [Neurontin -] 300 mg PO DAILY 04/20/16 Amlodipine Besylate [Norvasc -] 5 mg PO DAILY #90 tablet 04/22/16 Hydralazine HCl [Apresoline -] 10 mg PO DAILY #90 tablet 04/22/16 - AMA Did Patient Leave Against Medical Advice: Yes
--- NOTE | 2016-04-24 09:39 | PN ---
[facility] Progress Note Note: ADDENDUM PATIENT HAS BEEN ADMITTED AT [facility] ON 04/20/16 AT [facility], AND CONTINUE TREATMENT BEFORE COMING TO [facility] , PATIENT IS STABLE FOR DISCHARGE TODAY NO AMA
--- NOTE | 2016-04-24 09:43 | DS ---
[facility] Detox Discharge Summary Admission Date: 04/22/16 Discharge Date: 04/24/16 - History Present History: Alcohol Dependence Additional Comments: FOLLOW UP WITH AFTER [facility] PROGRAM ARRANGEMENT AND PMD FOR MEDICAL PROBLEM Pertinent Past History: HYPERTENSION RHEUMATOID ARTHRITIS - Physical Exam Results Vital Signs: Vital Signs Temperature 97.9 F 04/24/16 06:00 Pulse Rate 81 04/24/16 06:00 Respiratory Rate 18 04/24/16 06:00 Blood Pressure 130/90 04/24/16 06:00 O2 Sat by Pulse Oximetry (%) Pertinent Admission Physical Exam Findings: WITHDRAWAL SYMPTOM - Treatment Hospital Course: Detox Protocol Followed, Detoxed Safely, Responded well, Discharged Condition Good Patient has Accepted a Rehab Referral to: [facility] - Medication Discharge Medications: Ambulatory Orders Acetaminophen [Tylenol Arthritis] 650 mg PO PRN 04/20/16 Gabapentin [Neurontin -] 300 mg PO DAILY 04/20/16 Amlodipine Besylate [Norvasc -] 5 mg PO DAILY #90 tablet 04/22/16 Hydralazine HCl [Apresoline -] 10 mg PO DAILY #90 tablet 04/22/16 - AMA Did Patient Leave Against Medical Advice: No
[2016-04-24] MEDS: amLODIPine BESYLATE 5 MG TABLET (FP) PO SCH (10:00)
[2016-04-24] MEDS: hydrALAZINE HCL 10 MG TABLET PO SCH (10:00)
[2016-04-24] MEDS: GABAPENTIN 300 MG CAPSULE (FP) PO SCH (10:15)
[2016-04-24 10:28] VITALS: BP 133/95; PULSE 114; TEMP 96.8
== END 2016-04-24 10:15 | disposition home or self-care (01) | DRG 897 ==
LOC: YASAS 15:41 → Y6N 19:05
PROVIDERS: ADMIT Internal Medicine; ATTEND Internal Medicine
PROC: HZ2ZZZZ Detoxification Services for Substance Abuse Treatment (ICD-10-PCS; principal; 2016-04-22)
DX: F10.230 Alcohol dependence with withdrawal, uncomplicated (principal); I10 Essential (primary) hypertension; M05.60 Rheumatoid arthritis of unspecified site with involvement of other organs and systems
CPT/HCPCS: 36415; 81003; 86593; 93005; 93010